=== PATIENT | female | born 1965 | race African-American/Black ===

== ENCOUNTER 2016-10-06 23:52 | Emergency (ER) | payer OTHER ==
[2016-10-06 23:59] VITALS: BMI 37.9
--- NOTE | 2016-10-07 00:41 | PDOC ---
History of Present Illness - General History Source: Patient Exam Limitations: No Limitations - History of Present Illness Initial Comments: 10/07/16 01:47 The patient is a 51 year old female with a significant past medical history of asthma, anemia, and HIV, who presents to the emergency department complaining of bloody sputum in cough since this evening. The patient reports she was sleeping and woke up at approximately 22:00 this evening due to her coughing. She reports one of episode of bloody sputum in cough. The patient reports her sputum has otherwise been yellow. The patient reports associated chills and diaphoresis, but denies any fever, headache, dizziness, chest pain, palpitations , or shortness of breath. The patient denies any nausea, vomiting diarrhea, or constipation. The patient denies any dysuria, hematuria, frequency, or urgency. The patient reports no changes in appetite. She states her T cell count is 928. The patient denies any recent travel or sick contacts. Allergies: None reported. Past Surgical History: Laminectomy Social History: Non-smoker. Denies alcohol or drug use. PCP: Dr. Franz <Art Murphy - Last Filed: 10/07/16 01:47> <Tara Casiano - Last Filed: 10/08/16 07:30> - General Chief Complaint: Respiratory Stated Complaint: Shortness of breath Time Seen by Provider: 10/07/16 00:40 Past History <Art Murphy - Last Filed: 10/07/16 01:47> - Past Medical History Asthma: Yes HIV: Yes - Immunization History Immunization Up to Date: No - Psycho/Social/Smoking Cessation Hx Anxiety: No Suicidal Ideation: No Smoking History: Never smoked Have you smoked in the past 12 months: No Information on smoking cessation initiated: No Hx Alcohol Use: No Drug/Substance Use Hx: No Substance Use Type: None <Tara Casiano - Last Filed: 10/08/16 07:30> - Past Medical History Allergies/Adverse Reactions: Allergies Allergy/AdvReac Type Severity Reaction Status Date / Time erythromycin base AdvReac Vomiting Verified 10/07/16 02:06 Home Medications: Ambulatory Orders Emtricitabine/Tenofovir (Tdf) [Truvada 200 mg-300 mg Tablet] 1 each PO DAILY 06/12 Mometasone/Formoterol [Dulera 200 Mcg/5 Mcg Inhaler] 2 inh IH BID 10/06/16 Tiotropium [place] [Spiriva] 18 mcg IH DAILY PRN 10/06/16 Ascorbate Calcium [Vitamin C] 500 mg PO DAILY 10/07/16 Darunavir/Cobicistat [Prezcobix 800 mg-150 mg Tablet] 1 each PO DAILY 10/07/16 Levofloxacin [Levaquin] 500 mg PO DAILY #7 tablet 10/07/16 Review of Systems - Review of Systems Able to Perform ROS?: Yes Comments:: 10/07/16 01:49 GENERAL/CONSTITUTIONAL: +Chills. No fever. No weakness. HEAD, EYES, EARS, NOSE AND THROAT: No change in vision. No ear pain or discharge. No sore throat. CARDIOVASCULAR: +Diaphoresis. No chest pain or shortness of breath. RESPIRATORY: +Cough, +bloody/yellow sputum. No wheezing. GASTROINTESTINAL: No nausea, vomiting, diarrhea or constipation. GENITOURINARY: No dysuria, frequency, or change in urination. MUSCULOSKELETAL: No joint or muscle swelling or pain. No neck or back pain. SKIN: No rash NEUROLOGIC: No headache, vertigo, loss of consciousness, or change in strength/ sensation. ENDOCRINE: No increased thirst. No abnormal weight change. HEMATOLOGIC/LYMPHATIC: No anemia, easy bleeding, or history of blood clots. ALLERGIC/IMMUNOLOGIC: No hives or skin allergy. <Art Murphy - Last Filed: 10/07/16 01:47> *Physical Exam - Vital Signs Last Vital Signs Temp Pulse Resp BP Pulse Ox 98.7 F 87 18 144/78 98 10/06/16 23:56 10/06/16 23:56 10/06/16 23:56 10/06/16 23:56 10/06/16 23:56 - Physical Exam Comments: 10/07/16 01:51 GENERAL: Awake, alert, and fully oriented, in no acute distress HEAD: No signs of trauma EYES: PERRLA, EOMI, sclera anicteric, conjunctiva clear ENT: Auricles normal inspection, hearing grossly normal, nares patent, oropharynx clear without exudates. Moist mucosa NECK: Normal ROM, supple, no lymphadenopathy, JVD, or masses LUNGS: Mildly coarse breath sounds on the right lung field. Left lung field normal. No wheezes, and no crackles HEART: Regular rate and rhythm, normal S1 and S2, no murmurs, rubs or gallops ABDOMEN: Soft, nontender, normoactive bowel sounds. No guarding, no rebound. No masses EXTREMITIES: Normal range of motion, no edema. No clubbing or cyanosis. No cords, erythema, or tenderness NEUROLOGICAL: Cranial nerves II through XII grossly intact. Normal speech, normal gait SKIN: Warm, Dry, normal turgor, no rashes or lesions noted. <Art Murphy - Last Filed: 10/07/16 01:47> - Vital Signs Last Vital Signs Temp Pulse Resp BP Pulse Ox 98.7 F 87 18 144/78 98 10/06/16 23:56 10/06/16 23:56 10/06/16 23:56 10/06/16 23:56 10/06/16 23:56 <Tara Casiano - Last Filed: 10/08/16 07:30> ED Treatment Course - LABORATORY CBC & Chemistry Diagram: 10/07/16 01:50 10/07/16 01:50 <Tara Casiano - Last Filed: 10/08/16 07:30> Medical Decision Making - Medical Decision Making 10/08/16 07:29 Pt comes with productive cough; she has HIV. Afebrile here. T cell count over 900; VL is only 25, as per patient. Labs are normal, and CXR appears normal. SHe will be treated based on her clinical complaints. I will teat with levaquin and pt is to follow with her PMD. <Tara Casiano - Last Filed: 10/08/16 07:30> *DC/Admit/Observation/Transfer - Attestations Scribe Attestion: 10/07/16 01:52 Documentation prepared by Art Murphy, acting as biomedical engineering technician for Tara Casiano MD. <Art Murphy - Last Filed: 10/07/16 01:47> - Discharge Dispostion Admit: No <Tara Casiano - Last Filed: 10/08/16 07:30> Diagnosis at time of Disposition: Bronchitis - Discharge Dispostion Disposition: HOME Condition at time of disposition: Good - Prescriptions Prescriptions: Levofloxacin [Levaquin] 500 mg PO DAILY #7 tablet - Referrals Referrals: STAFF,NOT ON [Primary Care Provider] - - Patient Instructions Printed Discharge Instructions: DI for Acute Bronchitis
[2016-10-07] MEDS ORDERED: LEVOFLOXACIN 500 MG TABLET (FP) PO ONE (01:34)
[2016-10-07] MEDS ORDERED: LEVOFLOXACIN 500 MG TABLET (FP) ONE (01:45)
[2016-10-07 02:04] LABS: BASOPHIL 0.7 % (0-2.0); MCHC 32.9 g/dl (32.0-36.0); MEAN CELL VOLUME 78.9 fl (80-96); MEAN PLT VOLUME 7.2 fl (7.5-11.1); NEUTROPHILS 51.2 % (42.8-82.8); PLATELET COUNT 396 K/MM3 (134-434); RDW 14.6 % (11.6-15.6); WHITE BLOOD COUNT 10.3 K/mm3 (4.0-10.0)
[2016-10-07 02:33] LABS: ALBUMIN 3.9 g/dl (3.4-5.0); ALK PHOS 163 U/L (45-117); ANION GAP 8 (8-16); BILIRUBIN,TOTAL 0.3 mg/dL (0.2-1.0); CO2 27 mmol/L (21-32); CREATININE 0.7 mg/dL (0.55-1.02); GLUCOSE,RANDOM 113 mg/dL (74-106); SGOT/AST 22 U/L (15-37); SGPT/ALT 38 U/L (12-78); TOT PROT 8.7 g/dl (6.4-8.2)
[2016-10-07 03:32] VITALS: BP 143/81; PULSE 77; TEMP 97.9
== END 2016-10-07 03:32 | disposition home or self-care (01) ==
LOC: SUPCPDRO 23:52 → JER 23:52
DX: J40 Bronchitis, not specified as acute or chronic (principal); J45.909 Unspecified asthma, uncomplicated; Z21 Asymptomatic human immunodeficiency virus [HIV] infection status
CPT/HCPCS: 36415; 71020-TC; 80053; 85025; 87040; 99282-25

== ENCOUNTER 2019-09-10 11:36 | Emergency (ER) | payer OTHER ==
[2019-09-10 11:45] VITALS: BP 147/75; PULSE 81; TEMP 98.4; BMI 34.5
[2019-09-10] MEDS ORDERED: predniSONE 20 MG TABLET (UD) PO ONE (12:07)
--- NOTE | 2019-09-10 12:10 | PDOC ---
History of Present Illness - General Chief Complaint: Cold Symptoms Stated Complaint: COLD SYMPTOMS/COUGH Time Seen by Provider: 09/10/19 11:52 History Source: Patient - History of Present Illness Timing/Duration: reports: week Past History - Past Medical History Allergies/Adverse Reactions: Allergies Allergy/AdvReac Type Severity Reaction Status Date / Time erythromycin base AdvReac Vomiting Verified 10/07/16 02:06 Home Medications: Ambulatory Orders Emtricitabine/Tenofovir (Tdf) [Truvada 200 mg-300 mg Tablet] 1 each PO DAILY 06/12 Mometasone/Formoterol [Dulera 200 Mcg/5 Mcg Inhaler] 2 inh IH BID 10/06/16 Tiotropium [place] [Spiriva] 18 mcg IH DAILY PRN 10/06/16 Ascorbate Calcium [Vitamin C] 500 mg PO DAILY 10/07/16 Darunavir/Cobicistat [Prezcobix 800 mg-150 mg Tablet] 1 each PO DAILY 10/07/16 Levofloxacin [Levaquin] 500 mg PO DAILY #7 tablet 10/07/16 predniSONE [Deltasone -] 40 mg PO DAILY #8 tablet 09/10/19 Asthma: Yes - Immunization History Immunization Up to Date: No - Psycho Social/Smoking Cessation Hx Smoking History: Never smoked Have you smoked in the past 12 months: No Information on smoking cessation initiated: No Hx Alcohol Use: No Drug/Substance Use Hx: No Substance Use Type: None Review of Systems - Review of Systems Constitutional: No: Chills, Fever HEENTM: Yes: Nose Congestion. No: Ear Pain, Throat Pain Respiratory: Yes: Cough. No: Shortness of Breath, Wheezing Cardiac (ROS): No: Chest Pain *Physical Exam - Vital Signs Last Vital Signs Temp Pulse Resp BP Pulse Ox 98.4 F 81 18 147/75 99 09/10/19 11:42 09/10/19 11:42 09/10/19 11:42 09/10/19 11:42 09/10/19 11:42 - Physical Exam General Appearance: Yes: Appropriately Dressed. No: Apparent Distress HEENT: positive: Normal ENT Inspection, Normal Voice, TMs Normal, Pharynx Normal. negative: Scleral Icterus (R), Scleral Icterus (L) Neck: positive: Supple Respiratory/Chest: positive: Wheezing (diffusely). negative: Respiratory Distress Cardiovascular: positive: Regular Rate, S1, S2 Integumentary: positive: Dry, Warm Neurologic: positive: Fully Oriented, Alert, Normal Mood/Affect ED Treatment Course - RADIOLOGY Radiology Studies Ordered: Category Date Time Status CHEST PA & LAT [RAD] Stat Radiology 09/10/19 12:07 Ordered Medical Decision Making - Medical Decision Making 09/10/19 12:07 54 yo F, h/o HIV on meds, UD VL, unknown CD4, no OIs, asthma, former smoker, here w/ congestion w/ productive cough x 1 week. Denies chest pain shortness of breath or wheezing. No body aches fever or chills. Not taking anything for her symptoms see exam Asthma flare in setting of URI -duonebs -prednisone -CXR -reassess 09/10/19 12:39 Sxs improved. No wheezing on re-eval. Will to ambulate without shortness of breath. CXR neg. Will DC with Pred burst. Reasons to return discussed with patient Discharge - Discharge Information Problems reviewed: Yes Clinical Impression/Diagnosis: Asthma flare Qualifiers: Asthma severity: mild Asthma persistence: intermittent Qualified Code(s): J45.21 - Mild intermittent asthma with (acute) exacerbation Condition: Improved Disposition: HOME - Additional Discharge Information Prescriptions: predniSONE [Deltasone -] 40 mg PO DAILY #8 tablet - Follow up/Referral Referrals: ON STAFF,NOT [Primary Care Provider] - - Patient Discharge Instructions Patient Printed Discharge Instructions: DI for Asthma -- Adult, DI for Viral Upper Respiratory Infection -- Adult - Post Discharge Activity
[2019-09-10] MEDS ORDERED: ALBUTEROL SO4 2.5/IPRATROPIUM 0.5 INH SOL 3 ML VIAL.NEB. NEB SCH (12:15)
[2019-09-10] MEDS ORDERED: predniSONE 20 MG TABLET (UD) ONE (12:20)
== END 2019-09-10 12:40 | disposition home or self-care (01) ==
LOC: JERFT 11:36
PROC: 3E0F7GC Introduction of Other Therapeutic Substance into Respiratory Tract, Via Natural or Artificial Opening (ICD-10-PCS; principal; 2019-09-10)
DX: J45.21 Mild intermittent asthma with (acute) exacerbation (principal); Z88.8 Allergy status to other drugs, medicaments and biological substances; Z21 Asymptomatic human immunodeficiency virus [HIV] infection status; J45.909 Unspecified asthma, uncomplicated; Z87.891 Personal history of nicotine dependence
CPT/HCPCS: 71046-TC-FY; 94640; 99281-25

== ENCOUNTER 2021-04-11 18:58 | Inpatient (IN) | payer OTHER ==
[2021-04-11 19:14] VITALS: BMI 41.8
[2021-04-11 22:13] LABS: BASO % 0.6 % (0-2.0); EOS % 0.5 % (0-4.5); HEMATOCRIT 32.3 % (32.4-45.2); LYMPH % 21.5 % (8-40); MCH 26.8 pg (25.7-33.7); MCHC 34.2 g/dl (32.0-36.0); MEAN CELL VOLUME 78.4 fl (80-96); MEAN PLT VOLUME 8.3 fl (7.5-11.1); MONO % 9.5 % (3.8-10.2); NEUT % 67.9 % (42.8-82.8); PLATELET COUNT 379 10^3/uL (134-434); RBC 4.12 M/mm3 (3.60-5.2); RDW 16.1 % (11.6-15.6); WHITE BLOOD COUNT 11.3 K/mm3 (4.0-10.0)
[2021-04-11 22:19] LABS: INR 1.09 (0.83-1.09); PROTHROMBIN TIME (PATIENT) 13.1 SEC (9.7-13.0)
[2021-04-11 22:31] LABS: CHLORIDE 109 mmol/L (98-107); SODIUM 137 mmol/L (136-145)
[2021-04-11 22:33] LABS: CALCIUM 10.7 mg/dL (8.5-10.1)
[2021-04-11 22:34] LABS: ALBUMIN 3.2 g/dl (3.4-5.0); BLOOD UREA NITROGEN 13.9 mg/dL (7-18); CO2 23 mmol/L (21-32); GLUCOSE,RANDOM 96 mg/dL (74-106); LIPASE 37 U/L (73-393)
[2021-04-11 22:37] LABS: SGOT/AST 104 U/L (15-37)
[2021-04-11 22:38] LABS: BILIRUBIN,TOTAL 0.6 mg/dL (0.2-1)
[2021-04-11 22:39] LABS: TOT PROT 8.5 g/dl (6.4-8.2)
[2021-04-11 22:40] LABS: ALK PHOS 234 U/L (45-117)
[2021-04-11 22:51] LABS: ANION GAP 5 MMOL/L (8-16); SGPT/ALT 41 U/L (13-61)
[2021-04-11 23:47] LABS: EPI CELLS 17 /uL (0-25.1); HYALINE CASTS 15 /uL (0-3.1); PH,URINE 5.5 (5.0-8.0); URINE APPEARANCE CLOUDY; URINE BACTERIA 1156 /uL (0-1359); URINE BILIRUBIN NEGATIVE (NEGATIVE); URINE COLOR DK YELLOW; URINE GLUCOSE (UA) NEGATIVE (NEGATIVE); URINE KETONE TRACE (NEGATIVE); URINE LEUK ESTERASE 1+ (NEGATIVE); URINE NITRITE NEGATIVE (NEGATIVE); URINE PROTEIN NEGATIVE (NEGATIVE); URINE UROBILINOGEN 0.2 mg/dL (0.2-1.0); URINE WBC 187 /uL (0-25.8)
[2021-04-11 23:49] LABS: URINE RBC 17.5 /uL (0-23.9)
[2021-04-11 23:57] LABS: BLOOD UREA NITROGEN 13.6 mg/dL (7-18); CALCIUM 10.2 mg/dL (8.5-10.1)
[2021-04-12] LABS: CREATININE 0.8 mg/dL (0.55-1.3)
[2021-04-12 00:02] LABS: BILIRUBIN,TOTAL 0.3 mg/dL (0.2-1)
[2021-04-12] MEDS ORDERED: metroNIDAZOLE 500 MG TABLET PO ONE (00:25)
[2021-04-12] MEDS ORDERED: SODIUM CHLORIDE 0.9% 500 ML INFUS.BAG IV ONE (00:26)
[2021-04-12] MEDS ORDERED: CEFTRIAXONE 1,000 MG in DEXTROSE 5%-WATER - 50 ML IVPB ONE (00:26)
[2021-04-12] MEDS ORDERED: metroNIDAZOLE 250 MG TABLET ONE (00:39)
[2021-04-12] MEDS ORDERED: CEFTRIAXONE 1 GM/50 ML BAG ONE ×2 (00:39→09:14)
[2021-04-12] MEDS ORDERED: TRIMETHOBENZAMIDE HCL 200MG/2ML INJ IM PRN (00:52)
[2021-04-12] MEDS ORDERED: SODIUM CHLORIDE 1,000 ML IV SCH (01:00)
[2021-04-12] MEDS ORDERED: MONTELUKAST NA 10 MG TABLET ONE (06:02)
[2021-04-12] MEDS: MONTELUKAST NA 10 MG TABLET PO SCH ×2 (06:06→21:10)
[2021-04-12] MEDS: BUDESONIDE/FORMETEROL FUMARATE 80/4.5 mcg INHALER IH SCH ×3 (06:08→22:37)
[2021-04-12 06:59] LABS: HEMATOCRIT 28.8 % (32.4-45.2); HEMOGLOBIN 9.7 GM/dL (10.7-15.3); MCH 26.5 pg (25.7-33.7); MCHC 33.9 g/dl (32.0-36.0); MEAN CELL VOLUME 78.2 fl (80-96); MEAN PLT VOLUME 7.9 fl (7.5-11.1); PLATELET COUNT 292 10^3/uL (134-434); RBC 3.68 M/mm3 (3.60-5.2); RDW 15.5 % (11.6-15.6); WHITE BLOOD COUNT 8.8 K/mm3 (4.0-10.0)
[2021-04-12 07:19] LABS: ALBUMIN 2.8 g/dl (3.4-5.0); CALCIUM 9.9 mg/dL (8.5-10.1)
[2021-04-12 07:20] LABS: BLOOD UREA NITROGEN 10.6 mg/dL (7-18); MAGNESIUM 1.8 mg/dL (1.8-2.4)
[2021-04-12 07:23] LABS: CREATININE 0.7 mg/dL (0.55-1.3); PHOSPHOROUS 2.2 mg/dL (2.5-4.9)
[2021-04-12 07:24] LABS: BILIRUBIN,TOTAL 0.2 mg/dL (0.2-1); TOT PROT 6.7 g/dl (6.4-8.2)
[2021-04-12] MEDS ORDERED: PT OWN MED DRAWER 7, Y5N ONE (08:50)
[2021-04-12] MEDS: CEFTRIAXONE 1 GM in DEXTROSE 5%-WATER - 50 ML IVPB SCH (09:25)
[2021-04-13 08:13] LABS: BASO % 0.8 % (0-2.0); EOS % 3.1 % (0-4.5); HEMATOCRIT 29.1 % (32.4-45.2); HEMOGLOBIN 9.8 GM/dL (10.7-15.3); LYMPH % 32.5 % (8-40); MCH 26.3 pg (25.7-33.7); MCHC 33.6 g/dl (32.0-36.0); MEAN CELL VOLUME 78.4 fl (80-96); MEAN PLT VOLUME 7.9 fl (7.5-11.1); NEUT % 53.6 % (42.8-82.8); PLATELET COUNT 328 10^3/uL (134-434); RBC 3.72 M/mm3 (3.60-5.2); RDW 15.6 % (11.6-15.6); WHITE BLOOD COUNT 7.3 K/mm3 (4.0-10.0)
[2021-04-13 08:29] LABS: ALBUMIN 2.7 g/dl (3.4-5.0); BLOOD UREA NITROGEN 8.1 mg/dL (7-18)
[2021-04-13 08:32] LABS: CREATININE 0.6 mg/dL (0.55-1.3)
[2021-04-13 08:34] LABS: BILIRUBIN,TOTAL 0.2 mg/dL (0.2-1); TOT PROT 6.6 g/dl (6.4-8.2)
[2021-04-13] MEDS: BUDESONIDE/FORMETEROL FUMARATE 80/4.5 mcg INHALER IH SCH ×2 (09:57→21:13)
[2021-04-13] MEDS ORDERED: DEXTROSE 5%-WATER - 50 ML IVPB ONE (09:59)
[2021-04-13] MEDS ORDERED: cefTRIAXone SODIUM 1 GM VIAL ONE (09:59)
[2021-04-13] MEDS: PANTOPRAZOLE 40 MG TABLET PO SCH (10:01)
[2021-04-13] MEDS: CEFTRIAXONE 1 GM in DEXTROSE 5%-WATER - 50 ML IVPB SCH (11:06)
[2021-04-13] MEDS ORDERED: PT OWN MED DRAWER 7, Y5N ONE ×2 (14:46→17:29)
[2021-04-13] MEDS: DARUNAVIR/COB/EMTRI/TENOF (SYMTUZA) TABLET (NF) PO SCH ×2 (14:50)
[2021-04-13] MEDS: MONTELUKAST NA 10 MG TABLET PO SCH (21:13)
[2021-04-13 22:12] LABS: HIV INTERPRETATION PRESUMPTIVE POSITIVE (NEGATIVE)
[2021-04-13] MEDS ORDERED: ACETAMINOPHEN 325 MG TABLET (FP) PO PRN (23:57)
[2021-04-14 08:42] LABS: BASO % 0.8 % (0-2.0); EOS % 2.6 % (0-4.5); HEMATOCRIT 29.1 % (32.4-45.2); HEMOGLOBIN 9.9 GM/dL (10.7-15.3); MCH 26.1 pg (25.7-33.7); MEAN CELL VOLUME 76.9 fl (80-96); MEAN PLT VOLUME 7.5 fl (7.5-11.1); MONO % 9.7 % (3.8-10.2); NEUT % 57.9 % (42.8-82.8); PLATELET COUNT 321 10^3/uL (134-434); RBC 3.79 M/mm3 (3.60-5.2); RDW 15.4 % (11.6-15.6); WHITE BLOOD COUNT 6.3 K/mm3 (4.0-10.0)
[2021-04-14] MEDS ORDERED: cefTRIAXone SODIUM 1 GM VIAL ONE (08:57)
[2021-04-14] MEDS ORDERED: PT OWN MED DRAWER 7, Y5N ONE (08:57)
[2021-04-14] MEDS ORDERED: DEXTROSE 5%-WATER - 50 ML IVPB ONE (08:57)
[2021-04-14] MEDS: PANTOPRAZOLE 40 MG TABLET PO SCH (09:01)
[2021-04-14 09:02] LABS: CALCIUM 9.8 mg/dL (8.5-10.1)
[2021-04-14] MEDS: BUDESONIDE/FORMETEROL FUMARATE 80/4.5 mcg INHALER IH SCH ×2 (09:02→21:02)
[2021-04-14 09:03] LABS: ALBUMIN 2.6 g/dl (3.4-5.0); BLOOD UREA NITROGEN 9.2 mg/dL (7-18); MAGNESIUM 1.8 mg/dL (1.8-2.4)
[2021-04-14] MEDS: DARUNAVIR/COB/EMTRI/TENOF (SYMTUZA) TABLET (NF) PO SCH (09:03)
[2021-04-14 09:06] LABS: CREATININE 0.6 mg/dL (0.55-1.3)
[2021-04-14 09:07] LABS: BILIRUBIN,TOTAL 0.3 mg/dL (0.2-1); TOT PROT 6.3 g/dl (6.4-8.2)
[2021-04-14] MEDS ORDERED: FERROUS SO4 325 MG TABLET (FP) PO SCH ×2 (10:00→16:50)
[2021-04-14] MEDS: CEFTRIAXONE 1 GM in DEXTROSE 5%-WATER - 50 ML IVPB SCH (11:53)
[2021-04-14] MEDS ORDERED: AZITHROMYCIN 250 MG TABLET PO SCH (15:00)
[2021-04-14 20:07] LABS: GLIADIN ANTIBODY IGA 3 units (0-19); GLIADIN ANTIBODY IGG 3 units (0-19); TRANSGLUTAMINASE IGG 3 U/mL (0-5)
[2021-04-14] MEDS: MONTELUKAST NA 10 MG TABLET PO SCH (21:03)
[2021-04-15] MEDS ORDERED: PT OWN MED DRAWER 7, Y5N ONE (09:22)
[2021-04-15] MEDS: DARUNAVIR/COB/EMTRI/TENOF (SYMTUZA) TABLET (NF) PO SCH (09:23)
[2021-04-15] MEDS: BUDESONIDE/FORMETEROL FUMARATE 80/4.5 mcg INHALER IH SCH (09:23)
[2021-04-15 09:39] LABS: BASO % 0.7 % (0-2.0); EOS % 1.4 % (0-4.5); HEMATOCRIT 30.5 % (32.4-45.2); HEMOGLOBIN 10.1 GM/dL (10.7-15.3); LYMPH % 31.6 % (8-40); MCH 25.8 pg (25.7-33.7); MCHC 33.2 g/dl (32.0-36.0); MEAN CELL VOLUME 77.7 fl (80-96); MEAN PLT VOLUME 7.7 fl (7.5-11.1); MONO % 5.4 % (3.8-10.2); NEUT % 60.9 % (42.8-82.8); PLATELET COUNT 362 10^3/uL (134-434); RBC 3.93 M/mm3 (3.60-5.2); RDW 15.9 % (11.6-15.6); WHITE BLOOD COUNT 7.9 K/mm3 (4.0-10.0)
[2021-04-15 16:01] VITALS: BP 137/72; PULSE 72; TEMP 97.8
== END 2021-04-15 16:00 | disposition home or self-care (01) | DRG 248 ==
LOC: JER 18:58 → JERBED 04-12 00:39 → J7W 04-12 15:48
PROVIDERS: ADMIT Internal Medicine
DX: A04.5 Campylobacter enteritis (principal); Z21 Asymptomatic human immunodeficiency virus [HIV] infection status; J45.909 Unspecified asthma, uncomplicated; E66.01 Morbid (severe) obesity due to excess calories; N20.0 Calculus of kidney; R19.7 Diarrhea, unspecified; D50.9 Iron deficiency anemia, unspecified; A07.2 Cryptosporidiosis; R74.8 Abnormal levels of other serum enzymes; N39.0 Urinary tract infection, site not specified; Z68.41 Body mass index [BMI] 40.0-44.9, adult; K21.9 Gastro-esophageal reflux disease without esophagitis; E78.5 Hyperlipidemia, unspecified
CPT/HCPCS: 36415; 74177-TC; 76705-TC; 80053; 81003; 82306; 82550; 82553; 82607; 82652; 82728; 82746; 82784; 82977; 83516; 83540; 83550; 83605; 83690; 83735; 83970; 84100; 84155; 84165; 84484; 85025; 85027; 85045; 85610; 85730; 86140; 86334; 86359; 86360; 87045; 87046; 87086; 87186; 87324; 87328; 87329; 87389; 87449; 93005; 93010; 99285-25; C9803; Q9967; U0003; U0005

== ENCOUNTER 2021-08-17 22:44 | Emergency (ER) | payer OTHER ==
[2021-08-17 23:24] VITALS: BP 127/78; PULSE 98; TEMP 98.4; BMI 53.0
== END 2021-08-18 03:07 | disposition home or self-care (01) ==
LOC: JER 22:44
DX: U07.1 COVID-19 (principal); R05.9 Cough, unspecified; J06.9 Acute upper respiratory infection, unspecified
CPT/HCPCS: 71046-TC-FY; 99284-25; C9803; U0003; U0005

== ENCOUNTER 2021-12-09 10:25 | Emergency (ER) | payer OTHER ==
[2021-12-09 10:36] VITALS: BP 144/88; PULSE 81; TEMP 98.1; BMI 48.4
[2021-12-09] MEDS ORDERED: KETOROLAC TROMETHAMINE 30 MG/1 ML VIAL IVPUSH ONE (10:55)
[2021-12-09] MEDS ORDERED: SODIUM CHLORIDE 1,000 ML IV STA (10:55)
[2021-12-09] MEDS ORDERED: KETOROLAC TROMETHAMINE 30 MG/1 ML VIAL ONE (11:01)
[2021-12-09 11:51] LABS: BASO % 0.8 % (0-2.0); EOS % 0.9 % (0-4.5); HEMATOCRIT 33.7 % (32.4-45.2); LYMPH % 25.6 % (8-40); MCHC 32.5 g/dl (32.0-36.0); MEAN PLT VOLUME 7.5 fl (7.5-11.1); MONO % 8.4 % (3.8-10.2); NEUT % 64.3 % (42.8-82.8); PLATELET COUNT 328 10^3/uL (134-434); RBC 4.07 M/mm3 (3.60-5.2); RDW 16.2 % (11.6-15.6); WHITE BLOOD COUNT 10.3 K/mm3 (4.0-10.0)
[2021-12-09 12:22] LABS: CALCIUM 11.1 mg/dL (8.5-10.1)
[2021-12-09 12:23] LABS: ALBUMIN 3.4 g/dl (3.4-5.0); BLOOD UREA NITROGEN 19.4 mg/dL (7-18)
[2021-12-09 12:26] LABS: CREATININE 0.7 mg/dL (0.55-1.3)
[2021-12-09 12:27] LABS: BILIRUBIN,TOTAL 0.4 mg/dL (0.2-1)
[2021-12-09 12:28] LABS: TOT PROT 7.1 g/dl (6.4-8.2)
[2021-12-09 14:59] LABS: PH,URINE 5.5 (5.0-8.0); URINE APPEARANCE CLEAR; URINE BILIRUBIN NEGATIVE (NEGATIVE); URINE COLOR YELLOW; URINE GLUCOSE (UA) NEGATIVE (NEGATIVE); URINE KETONE NEGATIVE (NEGATIVE); URINE LEUK ESTERASE NEGATIVE (NEGATIVE); URINE NITRITE NEGATIVE (NEGATIVE); URINE PROTEIN NEGATIVE (NEGATIVE); URINE UROBILINOGEN 0.2 mg/dL (0.2-1.0)
== END 2021-12-09 15:40 | disposition home or self-care (01) ==
LOC: JER 10:25
PROC: 3E033GC Introduction of Other Therapeutic Substance into Peripheral Vein, Percutaneous Approach (ICD-10-PCS; principal; 2021-12-09)
DX: R10.9 Unspecified abdominal pain (principal)
CPT/HCPCS: 36415; 74176-TC; 80053; 81003; 85025; 99285-25

== ENCOUNTER 2022-04-20 13:28 | Emergency (ER) | payer OTHER ==
[2022-04-20 13:32] VITALS: BP 133/81; PULSE 94; RESP 18; TEMP 98.2; BMI 45.3
[2022-04-20] MEDS ORDERED: ONDANSETRON 4 MG/2 ML VIAL IVPUSH ONE (14:28)
[2022-04-20] MEDS ORDERED: SODIUM CHLORIDE 0.9% 500 ML INFUS.BAG IV ONE (14:28)
[2022-04-20] MEDS ORDERED: ONDANSETRON 4 MG/2 ML VIAL ONE (14:43)
[2022-04-20 16:26] LABS: BASO % 0.7 % (0-2.0); EOS % 1.1 % (0-4.5); EPI CELLS >36 /uL (0-25.1); HEMATOCRIT 32.3 % (32.4-45.2); HEMOGLOBIN 10.8 GM/dL (10.7-15.3); HYALINE CASTS 13 /uL (0-3.1); LYMPH % 32.7 % (8-40); MCH 26.6 pg (25.7-33.7); MCHC 33.5 g/dl (32.0-36.0); MEAN CELL VOLUME 79.5 fl (80-96); MEAN PLT VOLUME 7.8 fl (7.5-11.1); MONO % 7.6 % (3.8-10.2); NEUT % 57.9 % (42.8-82.8); PH,URINE 5.5 (5.0-8.0); PLATELET COUNT 379 10^3/uL (134-434); RBC 4.06 M/mm3 (3.60-5.2); RDW 15.2 % (11.6-15.6); URINE APPEARANCE CLOUDY; URINE BACTERIA 162 /uL (0-1359); URINE BILIRUBIN 1+ (NEGATIVE); URINE COLOR DK YELLOW; URINE GLUCOSE (UA) NEGATIVE (NEGATIVE); URINE KETONE TRACE (NEGATIVE); URINE LEUK ESTERASE 1+ (NEGATIVE); URINE NITRITE NEGATIVE (NEGATIVE); URINE PROTEIN 1+ (NEGATIVE); URINE WBC 49 /uL (0-25.8); WHITE BLOOD COUNT 9.5 K/mm3 (4.0-10.0)
[2022-04-20 16:37] LABS: BLOOD UREA NITROGEN 13.6 mg/dL (7-18)
[2022-04-20 16:38] LABS: ALBUMIN 3.4 g/dl (3.4-5.0); CALCIUM 8.4 mg/dL (8.5-10.1)
[2022-04-20 16:42] LABS: BILIRUBIN,TOTAL 0.5 mg/dL (0.2-1); TOT PROT 7.8 g/dl (6.4-8.2)
[2022-04-20 21:57] LABS: URINE RBC 15.8 /uL (0-23.9)
== END 2022-04-20 18:31 | disposition left against medical advice (07) ==
LOC: JER 13:28
PROC: 3E0333Z Introduction of Anti-inflammatory into Peripheral Vein, Percutaneous Approach (ICD-10-PCS; principal; 2022-04-20)
DX: R11.0 Nausea (principal)
CPT/HCPCS: 36415; 80053; 81003; 84484; 85025; 87086; 87186; 93005; 93010; 99284-25

== ENCOUNTER 2025-04-25 13:17 | Emergency (ER) | payer OTHER ==
[2025-04-25 13:23] VITALS: BP 150/82; PULSE 60; RESP 18; TEMP 98.7; BMI 41.1
[2025-04-25] MEDS ORDERED: ACETAMINOPHEN 500 MG TABLET (FP) ONE (14:01)
[2025-04-25] MEDS ORDERED: IBUPROFEN 600 MG TABLET (FP) PO ONE (14:01)
[2025-04-25 14:09] LABS: MCHC 32.6 g/dl (32.2-35.5); MEAN CELL VOLUME 79.3 fl (79.4-94.8); MEAN PLT VOLUME 9.6 fl (9.4-12.3); RDW 14.9 % (12.4-16.4)
[2025-04-25] MEDS: ACETAMINOPHEN 500 MG TABLET (FP) PO ONE (14:12)
[2025-04-25] MEDS: IBUPROFEN 600 MG TABLET (FP) PO ONE (14:12)
[2025-04-25 14:35] LABS: GLUCOSE,RANDOM 95 mg/dL (74-106); TOT PROT 7.5 g/dl (6.4-8.2)
[2025-04-25 14:36] LABS: CO2 25 mmol/L (21-32)
[2025-04-25 14:38] LABS: ALK PHOS 100 U/L (40-150)
[2025-04-25 14:40] LABS: SGOT/AST 17 U/L (5-34); SGPT/ALT 24 U/L (0-55)
[2025-04-25 14:41] LABS: CREATININE 0.73 mg/dL (0.55-1.3)
== END 2025-04-25 15:02 | disposition home or self-care (01) ==
LOC: JERFT 13:17
DX: S20.02XA Contusion of left breast, initial encounter (principal); W10.9XXA Fall (on) (from) unspecified stairs and steps, initial encounter
CPT/HCPCS: 36415; 71046-TC-FY; 80053; 82550; 84484; 85027; 93005; 93010; 99285-25